=== PATIENT | male | born 1975 | race American Indian/Alaskan Native ===

== ENCOUNTER 2016-05-12 23:46 | Emergency (ER) | payer OTHER ==
[2016-05-13 00:08] VITALS: RESP 18
[2016-05-13] MEDS ORDERED: Tmp-Smz 800 mg-160 mg DS Tab PO STA (00:35)
[2016-05-13] MEDS ORDERED: Tmp-Smz 800 mg-160 mg DS Tab ONE (00:40)
[2016-05-13 00:53] LABS: BASO # 0.1 K/uL (0.0-0.2); BASO % 0.7 % (0.0-2.0); EOS # 0.1 K/uL (0.0-0.7); EOS % 1.7 % (0.0-4.0); HEMATOCRIT 41.6 % (35.0-51.0); LYMPH # 2.8 K/uL (1.0-4.3); LYMPH % 36.8 % (20.0-40.0); MEAN CELL VOLUME 84.3 fL (80.0-94.0); MEAN CORPUSCULAR HEMOGLOBIN 28.2 pg (27.0-31.0); MEAN CORPUSCULAR HGB CONC 33.5 g/dL (33.0-37.0); MEAN PLATELET VOLUME 7.3 fL (7.2-11.7); MONO # 0.6 K/uL (0.0-0.8); MONO % 8.6 % (0.0-10.0); NRBC % 0.1 % (0.0-2.0); RED CELL DISTRIBUTION WIDTH 15.3 % (11.5-14.5); WHITE BLOOD COUNT 7.5 K/uL (4.8-10.8)
[2016-05-13 01:05] LABS: CHLORIDE 98 mmol/L (98-107); POTASSIUM 3.2 mmol/L (3.6-5.2); SODIUM 147 mmol/L (132-148)
[2016-05-13 01:07] LABS: AST/SGOT 20 U/L (17-59); BILIRUBIN,TOTAL 0.8 mg/dL (0.2-1.3); CARBON DIOXIDE 30 mmol/L (22-30); GFR AFRICAN-AMERICAN > 60
[2016-05-13 01:08] LABS: ALB/GLOB RATIO 1.1 (1.0-2.1); ALKALINE PHOSPHATASE 86 U/L (38-126); ALT/SGPT 30 U/L (21-72); BLOOD UREA NITROGEN 11 mg/dL (9-20); CALCIUM 8.3 mg/dl (8.6-10.4); GLUCOSE,RANDOM 88 mg/dL (75-110); TOTAL PROTEIN 7.6 g/dL (6.3-8.3)
--- NOTE | 2016-05-13 01:26 | C.PDOC ---
History Of Present Illness A 41 year old male presents to the emergency room with complaints of swelling to the bilateral armpits for the last 2 weeks. Patient notes that one of the areas was drained. No history of similar episodes. No h/o hypertension but has checked it a home a few times and notes that it was "high", which patient relates to stress. Patient denies any fever, chills, headaches, dizziness, chest pain, shortness of breath, nausea, vomiting, diarrhea, headache or visual changes. (-) rash (-) weight loss. Time Seen by Provider: 05/13/16 00:02 Chief Complaint (Nursing): Abnormal Skin Integrity History Per: Patient History/Exam Limitations: no limitations Onset/Duration Of Symptoms: Other (2 weeks of swelling to bilateral armpits. Increasing high blood pressure for last few months.) Current Symptoms Are (Timing): Still Present Location Of Injury: Right: Arm (Bilateral armpits), Left: Arm Quality Of Symptoms: Swollen Severity: Mild Past Medical History Reviewed: Historical Data, Nursing Documentation, Vital Signs Vital Signs: Last Vital Signs Temp 98.8 F 05/13/16 02:08 Pulse 73 05/13/16 02:08 Resp 18 05/13/16 02:08 BP 146/85 05/13/16 02:08 Pulse Ox 99 05/13/16 02:08 Family History: States: Unknown Family Hx - Social History Hx Alcohol Use: No Hx Substance Use: No Review Of Systems Except As Marked, All Systems Reviewed And Found Negative. Constitutional: Positive for: Other (Increasing high blood pressure for a few months.). Negative for: Fever, Chills Cardiovascular: Negative for: Chest Pain Respiratory: Negative for: Shortness of Breath Gastrointestinal: Negative for: Nausea, Vomiting, Diarrhea Musculoskeletal: Positive for: Other (Swelling to bilateral armpits. No discharge. No drainage.) Neurological: Negative for: Headache, Dizziness Physical Exam - Physical Exam Appears: Well, Non-toxic, No Acute Distress Skin: Other (Right Axilla- 1x1 cm mobile nodule of tenderness, swelling, induration, and erythema. No fluctuance. Left axilla- Three 1x1 cm areas of tenderness, swelling, and erythema with no fluctuance. 4th area with healed scab (pt notes that is where the drainage occurred)) Head: Atraumatic, Normacephalic Eye(s): bilateral: Normal Inspection, EOMI Nose: Normal, No Discharge, No Tenderness Oral Mucosa: Moist Throat: Normal, No Erythema, No Exudate Neck: Normal ROM, Supple Chest: Symmetrical, No Deformity, No Tenderness Cardiovascular: Rhythm Regular Respiratory: Normal Breath Sounds, No Rales, No Rhonchi, No Wheezing Back: Normal Inspection, No CVA Tenderness, No Vertebral Tenderness Extremity: Normal ROM, No Tenderness Neurological/Psych: Oriented x3, Normal Speech, Normal Cognition ED Course And Treatment - Laboratory Results Result Diagrams: 05/13/16 00:50 05/13/16 00:50 O2 Sat by Pulse Oximetry: 98 Progress Note: Patient received Keflex and Bactrim. On reevaluation, patient is afebrile, tolerating po, in no acute distress, and denies any pain headaches, dizziness, shortness of breath, or any other complaints. Patient feels comfortable going home and is stable for discharge. Patient recently obtained insurance and notes that he will follow up for further evaluations. Patient received HCTZ medication for high blood pressure. Case discussed with Dr. Best who agrees with plan and treatment and follow up with PMD/ER within a few days. Disposition - Disposition Referrals: [facility] [Outside] Disposition: HOME/ ROUTINE Disposition Time: 01:47 Condition: GOOD Additional Instructions: Apply to warm compresses. FOllow up with your doctor/ER for recheck on blood pressure and boils. Return to ER right away if symptoms persist or worsen. Prescriptions: Sulfamethoxazole/Trimethoprim [Bactrim DS 800 mg-160 mg] 1 tab PO BID #14 tab hydroCHLOROthiazide [Hydrodiuril] 25 mg PO DAILY #14 tab Cephalexin [cephalexin] 500 mg PO BID #14 cap Instructions: Chronic Hypertension (ED), Abscess (ED) - Clinical Impression Clinical Impression: Hidradenitis suppurativa, HTN (hypertension) - Scribe Statement The provider has reviewed the documentation as recorded by the Scribaleksandar Arthur All medical record entries made by the Scribe were at my direction and personally dictated by me. I have reviewed the chart and agree that the record accurately reflects my personal performance of the history, physical exam, medical decision making, and the department course for this patient. I have also personally directed, reviewed, and agree with the discharge instructions and disposition.
[2016-05-13] MEDS ORDERED: Potassium Chloride 20 mEq ER Tab PO STA (01:46)
[2016-05-13] MEDS ORDERED: Potassium Chloride 20 mEq ER Tab PO ONE (01:54)
[2016-05-13 02:09] VITALS: BP 146/85; PULSE 73; TEMP 98.8
[2016-05-13 05:53] VITALS: O2SAT 98
[2016-05-13 18:03] LABS: RAPID PLASMA REAGIN NONREACTIVE (NONREACTIVE)
== END 2016-05-13 02:11 | disposition home or self-care (01) ==
LOC: C.ER 23:46
DX: L73.2 Hidradenitis suppurativa (principal); I10 Essential (primary) hypertension; E87.6 Hypokalemia